=== PATIENT | male | born 1980 | race Caucasian/White ===

== ENCOUNTER 2025-05-20 17:24 | Emergency (ER) | payer BC ==
[~2025-05-20] VITALS: Ht 193 cm; Wt 97.7 kg
[2025-05-20 17:46] LABS: MEAN PLATELET VOLUME 6.3 FL (7.4-10.4); RED CELL DISTRIBUTION WIDTH 14.5 % (11.5-14.5)
[2025-05-20 17:57] VITALS: TEMP 97.9
[2025-05-20 18:01] LABS: CREATININE 0.94 MG/DL (0.60-1.10); TOTAL CARBON DIOXIDE 25.1 MMOL/L (24-32); eCRCL 121 ML/MIN; eGFR 86 ML/MIN
--- NOTE | 2025-05-20 19:05 | Physician Documentation ---
History of Present Illness ~ Chief Complaint: ETOH Stated Complaint: ETOH Time Seen by MD: 17:43 Mode of Arrival: Wheelchair HPI 44-year-old male comes to the ED for evaluation for ETOH withdrawal. States he drinks 2-3 pt of hard alcohol daily. States last time he drank was earlier today. He reports that he came to [place] to stay with his dad so he can detox. However when he went to his dad's house he decided he wanted to drink more hard alcohol. His dad then brought him to the ED for evaluation. Denies any history of seizures or DTs. 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 Day of Onset: May 20, 2025 Tetanus within 5 years?: No Medication Reconciliation Allergies: Coded Allergies: No Known Allergies (Unverified , 05/20/25) Scheduled Chlordiazepoxide Hcl (Librium), 25 MG PO TID Physical Exam Vital Signs: Temperature: 97.9, Source: Oral, Heart Rate: 90, Respiratory Rate: 14, BP: 143/106, Pulse Oximetry: 97, Weight: 97.730 Oxygen Flow Rate: 0 Progress Results/Orders Results/Orders Vital Signs 05/20/25 05/20/25 05/20/25 05/20/25 17:33 17:57 17:57 18:46 Temp 97.9 97.9 Pulse 107 90 90 Resp 18 10 14 B/P (MAP) 140/101 153/114 (127) 143/106 (118) Pulse Ox 97 98 97 O2 Flow Rate 0 0 05/20/25 05/20/25 18:54 19:29 Pulse 86 Resp 20 B/P (MAP) 147/105 Pulse Ox 96 Laboratory Tests Test 05/20/25 17:37 05/20/25 19:27 White Blood Count 7.5 Red Blood Count 5.47 Hemoglobin 16.7 Hematocrit 47.4 Mean Corpuscular Volume 86.7 Mean Corpuscular Hemoglobin 30.5 Mean Corpuscular Hemoglobin Concent 35.2 Red Cell Distribution Width 14.5 Platelet Count 304 Mean Platelet Volume 6.3 L Neutrophils (%) (Auto) 53.1 Lymphocytes (%) (Auto) 34.0 Monocytes (%) (Auto) 11.4 Eosinophils (%) (Auto) 0.7 Basophils (%) (Auto) 0.8 Neutrophils # (Auto) 4.0 Lymphocytes # (Auto) 2.6 Monocytes # (Auto) 0.9 Eosinophils # (Auto) 0.1 Basophils # (Auto) 0.1 CBC Comment Sodium Level 139 Potassium Level 3.8 Chloride Level 102 Carbon Dioxide Level 25.1 Anion Gap 12 Blood Urea Nitrogen 9 Creatinine 0.94 Estimated GFR/1.73 m2 86 BUN/Creatinine Ratio 9.6 L Glucose Level 121 H Calcium Level 8.7 Total Bilirubin 0.4 Aspartate Amino Transf (AST/SGOT) 33 Alanine Aminotransferase (ALT/SGPT) 52 Alkaline Phosphatase 63 Total Protein 7.8 Albumin 3.7 Globulin 4.1 Albumin/Globulin Ratio 0.9 L Lipase 74 Chemistry Comments Urine Specimen Description Cln catch midstream Urine Color Yellow Urine Clarity Clear Urine pH 6.0 Urine Specific [place] 1.015 Urine Protein 100 H Urine Glucose (UA) Negative Urine Ketones Negative Urine Occult Blood Trace-intact Urine Nitrite Negative Urine Bilirubin Negative Urine Urobilinogen 0.2 Urine Leukocyte Esterase Negative Urine RBC 0-2 Urine WBC 0-4 Urine Squamous Epithelial Cells Few Urine Bacteria None seen Urine Hyaline Casts 0-3 Urine Mucus Many Urine Culture Indicated Not ind Volume Urine Centrifuged 10 ml Urine Comment Medical Decision Making Findings I spoke to the patient's alcohol sponsor about plan to help the patient abstain from alcohol. Concern was that the patient appeared to be bargaining throughout my interview with him. Ultimately, I offered to prescribe him Librium tapering dose with the intention for him the cease alcohol ingestion.. He agreed his dad states that he will keep him at his house while he attempts to get sober. Differential Dx:Considerations: Include: Intoxication-Alcohol, Intoxication- Other drug, Personality disorder, Substance abuse disorder, Acute delirium, Closed head injury, Cervical spine injury, Skull fracture, Fracture(s), Abrasion, Contusion, Foreign body, Hematoma, Laceration, Alcohol withdrawl syndrom, Encephalopathy, Hepatitis, Medically stable, Other Departure Disposition: 01 HOME / SELF CARE / HOMELESS Impression: Primary Impression: Alcoholic intoxication Additional Impressions: Alcohol dependence Alcohol abuse Condition: Stable Discharge Instructions: Alcohol Abuse and Dependence Information, Adult, Alcohol Intoxication Referrals: NO PRIMARY CARE PROVIDER (PCP) Prescriptions Chlordiazepoxide Hcl (Librium) 25 Mg Capsule 25 MG PO TID for alcohol withdrawl for 5 Days, #15 CAP 0 Refills Prov: WILFREDO POMPA NP 05/20/25 Education Educated: Patient Educated regarding: diagnosis Signature Scribe Signature: k Attestation: Scribed for Wilfredo Pompa Scrap Wheeler by Wilfredo Pompa - JIMBO . 05/20/25 23:18 WILFREDO POMPA NP May 20, 2025 19:05
[2025-05-20] MEDS ORDERED: CHLO25CA10 PO (19:07)
[2025-05-20 19:29] VITALS: BP 147/105; PULSE 86; RESP 20; O2SAT 96
[2025-05-20 19:42] LABS: LEUKOCYTE ESTERASE ,URINE NEGATIVE (Neg); NITRITES, URINE NEGATIVE (Neg); OCCULT BLOOD,URINE TRACE-INTACT (Neg)
[2025-05-20 19:45] LABS: UA COLLECTION TYPE CLN CATCH MIDSTREAM
[2025-05-20 19:47] LABS: HYALINE CASTS 0-3 /LPF (NEGATIVE); MUCUS STRANDS MANY /LPF (Neg); SQUAMOUS EPITHELIAL CELL,UR FEW /LPF (FEW)
== END 2025-05-20 19:31 | disposition home or self-care (01) ==
LOC: ER 17:25
DX: F10.229 Alcohol dependence with intoxication, unspecified (principal); Z79.899 Other long term (current) drug therapy; Y90.9 Presence of alcohol in blood, level not specified
CPT/HCPCS: 36415; 80053; 81001; 83690; 85025; 99284